=== PATIENT | female | born 1995 | race Caucasian/White ===

== ENCOUNTER 2020-11-18 12:33 | Emergency (ER) | payer OTHER, SELFPAY ==
[2020-11-18 12:44] VITALS: BP 124/77; PULSE 73; RESP 16; TEMP 36.3; O2SAT 100
--- NOTE | 2020-11-18 12:44 | ED.URI ---
HPI - URI/Sore Throat General Chief Complaint: Upper Respiratory Infection Stated Complaint: Fatigue,Congestion Time Seen by Provider: 11/18/20 12:44 Source: patient and RN notes reviewed Mode of arrival: ambulatory Limitations: no limitations History of Present Illness HPI Narrative: 24-year-old female presents to the [facility] with complaints of fatigue since Friday, 5 days. States that she has had 2 - Covid tests and took a test, all negative. Thought this was all allergy related. States that she had resent Lab work with elevated T4 @104 Reports a fever of 100.4 yesterday. No fever today just states that this fatigue feels like when she had Covid last May. She is fully vaccinated. Patient is requesting that we do lab work to figure out why she is so tired all the time. Discussed with patient that we can offer a test however we do not do blood work. States that she became concerned when her heart rate was over 80. Related Data Home Medications Medication Instructions Recorded Confirmed Seroquel 12.5 mg PO HS 11/18/20 11/18/20 lamotrigine 200 mg PO HS 11/18/20 11/18/20 Allergies Allergy/AdvReac Type Severity Reaction Status Date / Time No Known Allergies Allergy Verified 11/18/20 12:55 Review of Systems Review of Systems: All systems reviewed & are unremarkable except as noted in HPI and below Constitutional: Constitutional: Reports no additional constitutional complaints, Denies chills, Reports fatigue and Reports fever(s) Eyes: Eyes: Reports no additional eye complaints ENT: Reports nasal congestion Cardiovascular: Cardiovascular: Reports as per HPI and Denies chest pain Respiratory: Respiratory: Reports as per HPI, Reports no additional respiratory complaints, Denies cough and Denies dyspnea Gastrointestinal: Gastrointestinal: Reports no additional gastrointestinal complaints Genitourinary: Genitourinary: Reports no additional female genitourinary complaints Musculoskeletal: Musculoskeletal: Reports no additional musculoskeletal complaints Neurologic: Reports system reviewed and no additional complaints, except as documented and Denies headache(s) Psychiatric: Psychiatric: Reports no additional psychiatric complaints PMFSH Comments At the time of my signature, I reviewed and agree with the nursing past medical, surgical, social, and family history. There is no relevant family history pertinent to the patient complaint. Exam Const: General: healthy appearing, no acute distress and alert Nutritional Appearance: well nourished Orientation/consciousness: patient oriented x3 Limitations: no limitations HENMT: Head: normal to inspection Ears: external ears normal and TM's normal bilaterally Mouth: Yes moist mucous membranes Throat: uvula midline Eyes: Pupils: Equal, round and reactive pupils present Resp: Effort & Inspection: normal respiratory effort and no use of accessory muscles Auscultation: clear to auscultation bilaterally, no crackles, no rales, no rhonchi and no wheezes Cardio: Rate: regular rate Rhythm: regular rhythm GI: GI Palp: Yes Soft to palpation and No Tenderness to palpation present (GI) : General: Yes no CVA tenderness Back/Spine/Pelvis: Back: no CVA tenderness Skin: General skin exam: normal color Rashes: no rashes Neuro: General: patient oriented x3, moves all extremities and no meningeal signs Speech: normal speech Gait exam (Neuro): Normal gait present Extrem: General: normal to inspection Psych: Appearance: grossly normal and well kempt Mental Status: mental status grossly normal Affect: normal affect Attitude: cooperative Thought content: Yes Normal thought content present Course Vital Signs Vital signs: Vital Signs Temperature 97.4 F L 11/18/20 12:44 Pulse Rate 73 11/18/20 12:44 Respiratory Rate 16 11/18/20 12:44 Blood Pressure 124/77 11/18/20 12:44 Pulse Oximetry 100 11/18/20 12:44 Temperature 97.4 F L
== END 2020-11-18 13:07 | disposition home or self-care (01) ==
PROVIDERS: Emergency Provider Nurse Practitioner; PCP Family Medicine
DX: R53.83 Other fatigue (principal); N80.9 Endometriosis, unspecified; E28.2 Polycystic ovarian syndrome; F31.9 Bipolar disorder, unspecified
CPT/HCPCS: 99202; G0463

== ENCOUNTER 2021-04-19 13:37 | Emergency (ER) | payer OTHER, SELFPAY ==
--- NOTE | ~2021-04-19 | XR_ITS ---
XR chest 2V DATE: 04/19/2021 14:26 INDICATION: Intermittent palpitations for 2 weeks TECHNIQUE: PA and lateral views COMPARISON: None FINDINGS: Normal heart size. No hilar or mediastinal enlargement. No pulmonary infiltrate or consolid ation, pleural effusion or pulmonary vascular congestion or pneumothorax. Included skeletal structure s are unremarkable other than mild levoscoliosis of the thoracic spine. IMPRESSION: No active cardiopulmonary disease Reviewed, dictated and finalized at location B.
--- NOTE | 2021-04-19 13:43 | ECG_ITS ---
Measurements Intervals [place] Rate: 88 P: 68 [place]: 159 QRS: 79 QRSD: 96 T: 45 QT: 360 QTc: 436 Interpretive Statements SINUS RHYTHM POSSIBLE LEFT ATRIAL ENLARGEMENT INCOMPLETE RIGHT BUNDLE BRANCH BLOCK BORDERLINE T WAVE ABNORMALITY- ANT/INF LEADS BORDERLINE ECG Electronically Signed On 04-19-2021 14:00:06 CDT by Tung Workman D.O.
[2021-04-19 13:49] VITALS: BP 105/78; PULSE 85; RESP 14; TEMP 37.1; O2SAT 100
[2021-04-19 14:20] LABS: Basophils Absolute Auto 0.1 K/mm3 (0.0-0.1); Basophils Percent Auto 0.7 % (0.2-1.2); Eosinophils Absolute Auto 0.3 K/mm3 (0-0.3); Eosinophils Percent Auto 3.9 % (0-4.4); Hematocrit 39.2 % (37.0-47.0); Hemoglobin 13.5 g/dL (12.0-15.0); Immature Granulocyte Absolute 0.03 K/mm3 (0.00-0.031); Immature Granulocyte Percent A 0.4 % (0-0.5); Lymphocytes Absolute Auto 2.22 K/mm3 (0.9-3.2); Mean Corpuscular HGB Conc 34.4 g/dl (32-36); Mean Corpuscular Volume 98.7 fl (80-100); Mean Platelet Volume 10.8 fl (7.4-10.4); Monocytes Absolute Auto 0.6 K/mm3 (0.1-0.6); Monocytes Percent Auto 7.4 % (2.6-8.5); Neutrophils Absolute Auto 4.3 K/mm3 (1.3-6.7); Neutrophils Percent Auto 57.6 % (45.5-73.1); Platelet Count Result 201 k/mm3 (150-375); Red Blood Count 3.97 M/mm3 (4.2-5.4); Red Cell Distribution Width 11.8 % (11.5-14.5); White Blood Count 7.4 K/mm3 (4.5-10.0)
[2021-04-19 14:33] LABS: INR 0.9; Prothrombin Time 11.9 Seconds (11.1-14.7)
[2021-04-19 14:34] LABS: Partial Thromboplastin Time 28.3 SECONDS (22.3-36.8)
[2021-04-19 14:35] LABS: Anion Gap 9 mmol/L (8-16); Blood Urea Nitrogen 15 mg/dL (7-17); Calcium 9.5 mg/dL (8.4-10.2); Carbon Dioxide 28 mmol/L (22-30); Chloride 102 mmol/L (98-107); Estimated CRCL calculation 66 ml/min; Estimated Glomerular Filt Rate > 60; Glucose 96 mg/dL (65-110); Potassium 4.1 mmol/L (3.4-5.0); Sodium 139 mmol/L (137-145)
[2021-04-19 14:46] LABS: Troponin I < 0.012 ng/mL (0.000-0.034)
[2021-04-19] MEDS: SODIUM CHLORIDE 0.9% IV 1,000 ML 999 ML IV CONT (17:21)
[2021-04-19 17:34] LABS: Troponin I < 0.012 ng/mL (0.000-0.034)
[2021-04-19 18:27] VITALS: BP 126/82; PULSE 71; RESP 18; O2SAT 100
--- NOTE | 2021-04-19 18:41 | ED.GENADULT ---
HPI - General Adult General Chief complaint: Arrhythmia/Palpitations Stated complaint: palpations Time Seen by Provider: 04/19/21 16:39 History of Present Illness HPI narrative: Patient is a 25-year-old female who presents ER with concerns of elevated heart rate/palpitations. Reports she noticed that her resting heart rate was higher than normal and that she is becoming slightly tachycardic. She did also notice that she is getting dizzy when going from sitting to standing. Reports normal oral intake of food and water. No change in home medications. Denies fevers or chills or sweats. No unexplained weight loss. Contacted her PCP who cannot see her today and reported she had increased concern she should go to the ER for further evaluation. Related Data Home Medications Medication Instructions Recorded Confirmed lamotrigine 200 mg PO HS 11/18/20 12/18/20 loratadine 10 mg tablet 10 mg PO DAILY 12/18/20 12/18/20 methylphenidate HCl 18 mg 18 mg PO QAM 12/18/20 12/18/20 tablet,extended release 24 hr quetiapine 25 mg tablet 25 mg PO QHS 12/18/20 12/18/20 Allergies Allergy/AdvReac Type Severity Reaction Status Date / Time No Known Allergies Allergy Verified 12/18/20 08:42 Review of Systems Review of Systems: All systems reviewed & are unremarkable except as noted in HPI and below Constitutional: Constitutional: Denies chills, Denies fever(s) and Denies weakness ENT: Denies nasal congestion and Denies sore throat Cardiovascular: Cardiovascular: Denies chest pain, Reports rapid heart rate and Denies radiating jaw, neck or arm pain Respiratory: Respiratory: Denies cough and Denies dyspnea Gastrointestinal: Gastrointestinal: Denies abdominal pain, Denies nausea and Denies vomiting [facility] Past Medical History Medical History (Updated 04/19/21 @ 18:50 by Jarett Husain MD) ADHD Allergies Anxiety Asthma Endometriosis PCOS (polycystic ovarian syndrome) Surgical History Surgical History (Updated 04/19/21 @ 18:50 by Jarett Husain MD) H/O laparoscopy Family History Family History Mother Depression Anxiety Grandparent Breast cancer paternal Anxiety maternal Depression maternal Social History Social History Smoking status: Never smoker Alcohol intake: current Drinks per week: 5 Alcohol use details: milady Substance use: never Substance use type: does not use Additional occupation/education comments: [employer] Operator Exam Narrative: GENERAL: Well-appearing, well-nourished, and in no acute distress. HEAD: Normocephalic, atraumatic. EYES: PERRL and EOMI. ENT: Mucous membranes moist. CHEST: Clear to auscultation. No respiratory distress. HEART: Regular rate and rhythm. Normal peripheral pulses. ABDOMEN: Soft, nontender, nondistended. EXTREMITIES: Normal range of motion. No edema. SKIN: Warm, dry, no rash. NEURO: Normal mood and affect. Course Course Emergency Course: Hydrated, feels improved, discharge home. Vital Signs Vital signs: Vital Signs Temperature 98.7 F 04/19/21 13:49 Pulse Rate 85 04/19/21 13:49 Respiratory Rate 14 04/19/21 13:49 Blood Pressure 105/78 04/19/21 13:49 Pulse Oximetry 100 04/19/21 13:49 Temperature 98.7 F 04/19/21 13:49 Pulse Rate 71 04/19/21 18:27 Respiratory Rate 18 04/19/21 18:27 Blood Pressure 126/82 04/19/21 18:27 Pulse Oximetry 100 04/19/21 18:27 Medical Decision Making Vital Signs Vital Signs: Vital Signs Temperature 98.7 F 04/19/21 13:49 Pulse Rate 85 04/19/21 13:49 Respiratory Rate 14 04/19/21 13:49 Blood Pressure 105/78 04/19/21 13:49 Pulse Oximetry 100 04/19/21 13:49 Temperature 98.7 F 04/19/21 13:49 Pulse Rate 71 04/19/21 18:27 Respiratory Rate 18 04/19/21 18:27 Blood Pressure 126/82 04/19/21 18:27 Pulse Ox
[2021-04-19 18:57] VITALS: BP 104/76; PULSE 74
[2021-04-19 18:58] VITALS: BP 115/81; PULSE 78
[2021-04-19] MEDS: IBUPROFEN 600 MG TABLET PO (18:59)
[2021-04-19 19:00] VITALS: BP 111/77; PULSE 83
== END 2021-04-19 19:21 | disposition home or self-care (01) ==
PROVIDERS: Emergency Provider Emergency Medicine; PCP Family Medicine
DX: R00.2 Palpitations (principal); J45.909 Unspecified asthma, uncomplicated; N80.9 Endometriosis, unspecified; E28.2 Polycystic ovarian syndrome; F90.9 Attention-deficit hyperactivity disorder, unspecified type; F41.9 Anxiety disorder, unspecified; I45.10 Unspecified right bundle-branch block; R94.31 Abnormal electrocardiogram [ECG] [EKG]
CPT/HCPCS: 36415; 71046; 80048; 84484; 85025; 85610; 85730; 93005; 96360; 96361; 99284; A9270; J7030

== ENCOUNTER 2021-04-23 13:28 | Emergency (ER) | payer OTHER, SELFPAY ==
[2021-04-23] VITALS (21 sets, daily range): BP systolic 91–141; BP diastolic 55–85; PULSE 65–101; RESP 14–34; TEMP 36.7–36.8; O2SAT 99–100
--- NOTE | 2021-04-23 13:56 | ECG_ITS ---
Measurements Intervals [place] Rate: 90 P: 71 [place]: 155 QRS: 86 QRSD: 101 T: 48 QT: 358 QTc: 439 Interpretive Statements SINUS RHYTHM POSSIBLE LEFT ATRIAL ENLARGEMENT INCOMPLETE RIGHT BUNDLE BRANCH BLOCK BORDERLINE ST-T WAVE ABNORMALITY- ANT/INF LEADS BORDERLINE ECG Electronically Signed On 04-23-2021 14:35:10 CDT by Tung Workman D.O.
[2021-04-23 14:29] LABS: Basophils Percent Auto 0.5 % (0.2-1.2); Eosinophils Absolute Auto 0.3 K/mm3 (0-0.3); Eosinophils Percent Auto 5.5 % (0-4.4); Hematocrit 41.5 % (37.0-47.0); Hemoglobin 13.8 g/dL (12.0-15.0); Immature Granulocyte Absolute 0.01 K/mm3 (0.00-0.031); Immature Granulocyte Percent A 0.2 % (0-0.5); Lymphocytes Absolute Auto 2.14 K/mm3 (0.9-3.2); Lymphocytes Percent Auto 35.4 % (18.3-44.2); Mean Corpuscular HGB Conc 33.3 g/dl (32-36); Mean Corpuscular Hemoglobin 33.4 pg (26-34); Mean Corpuscular Volume 100.5 fl (80-100); Mean Platelet Volume 10.7 fl (7.4-10.4); Monocytes Absolute Auto 0.4 K/mm3 (0.1-0.6); Monocytes Percent Auto 6.5 % (2.6-8.5); Neutrophils Absolute Auto 3.1 K/mm3 (1.3-6.7); Neutrophils Percent Auto 51.9 % (45.5-73.1); Platelet Count Result 214 k/mm3 (150-375); Red Blood Count 4.13 M/mm3 (4.2-5.4); Red Cell Distribution Width 11.8 % (11.5-14.5)
[2021-04-23 14:41] LABS: Anion Gap 9 mmol/L (8-16); Blood Urea Nitrogen 17 mg/dL (7-17); Calcium 9.4 mg/dL (8.4-10.2); Carbon Dioxide 30 mmol/L (22-30); Chloride 101 mmol/L (98-107); Estimated CRCL calculation 73 ml/min; Estimated Glomerular Filt Rate > 60; Glucose 65 mg/dL (65-110); Potassium 3.4 mmol/L (3.4-5.0); Sodium 140 mmol/L (137-145)
[2021-04-23] MEDS: SODIUM CHLORIDE 0.9% IV 1,000 ML 999 ML IV CONT (16:12)
--- NOTE | 2021-04-23 16:33 | PC.NURSE ---
Cardiology here to put holter monitor on pt
--- NOTE | 2021-04-23 21:38 | ED.GENADULT ---
HPI - General Adult General Chief complaint: Syncope Stated complaint: near syncopal episode Time Seen by Provider: 04/23/21 14:26 Source: patient Mode of arrival: ambulatory Limitations: no limitations History of Present Illness HPI narrative: Patient presents with chief complaint of feeling as if she was going to have a syncopal episode while assisting a patient with physical therapy. She states that she went and sat down and laying back and she began to feel better. Patient reports that during the episode she felt as if her heart was beating extremely fast. She reports states that her vital signs and her heart rate was 140s. Patient reports that her blood pressure was normal at 120s over 70s. Patient states that she did not lose consciousness. She denies chest pain or shortness of breath. She denies any head impact or loss of consciousness. Patient reports that she had a appointment with her primary care provider this evening but due to this event she came straight to the emergency department. Patient reports that since last she has had these palpitations events approximately 2-3 times a day. She denies syncope, chest pain, shortness of breath accompanying them. Related Data Home Medications Medication Instructions Recorded Confirmed lamotrigine 200 mg PO HS 11/18/20 12/18/20 loratadine 10 mg tablet 10 mg PO DAILY 12/18/20 12/18/20 methylphenidate HCl 18 mg 18 mg PO QAM 12/18/20 12/18/20 tablet,extended release 24 hr quetiapine 25 mg tablet 25 mg PO QHS 12/18/20 12/18/20 Allergies Allergy/AdvReac Type Severity Reaction Status Date / Time No Known Allergies Allergy Verified 04/23/21 14:48 Review of Systems Review of Systems: CONSTITUTIONAL: Denies fever, chills, or sweats. EYES: Denies visual changes, redness, or discharge. ENT: Denies rhinorrhea, congestion, sore throat, or otalgia. CARDIOVASCULAR: Reports palpitations denies chest pain, or edema. RESPIRATORY: Denies cough or dyspnea. GASTROINTESTINAL: Denies abdominal pain, nausea, vomiting, or diarrhea. GENITOURINARY: Denies dysuria or hematuria. SKIN: Denies rash or itching. MUSCULOSKELETAL: Denies back pain, joint pain, or myalgia. NEUROLOGIC: Reports near syncope denies headache, numbness, dizziness, or weakness. PSYCHIATRIC: Denies anxiety or depression. [facility] Past Medical History Medical History (Updated 04/23/21 @ 16:39 by Chalino Malcolm PA-C) ADHD Allergies Anxiety Asthma Endometriosis PCOS (polycystic ovarian syndrome) Surgical History Surgical History (Updated 04/19/21 @ 18:50 by Jarett Husain MD) H/O laparoscopy Family History Family History Mother Depression Anxiety Grandparent Breast cancer paternal Anxiety maternal Depression maternal Social History Social History Smoking status: Never smoker Alcohol intake: current Drinks per week: 5 Alcohol use details: milady Substance use: never Substance use type: does not use 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 HEAD: Normocephalic, atraumatic. EYES: PERRLA and EOMI. ENT: Nares clear, no rhinorrhea or epistaxis. Mucous membranes moist. Oropharynx without tonsillar hypertrophy exudate or other lesions. Bilateral TMs pearly durán nonbulging NECK: Supple. No adenopathy or masses. Range of motion intact without rigidity. CHEST: Clear to auscultation. No respiratory distress. No wheezes rales or rhonchi HEART: Regular rate and rhythm. No murmur heard. Normal peripheral pulses. EXTREMITIES: Normal range of motion. No edema. SKIN: Warm, dry, no rash. NEURO: No focal deficits. Alert and oriented x3. No cerebellar dysfunction. Speech clear and appropriate. Segmental Wall Installer strength equal bilaterally. No unilateral
--- NOTE | 2021-04-26 12:29 | WPDHOLTEREM ---
Holter/Event Monitor Holter/Event Monitor Date of procedure: 04/23/21 Holter/Event Procedure: 48 Hr Holter Monitor Indications: Palpitations Conclusion: 1. 48 hour holter monitor on 04/23/21. 2. Underlying rhythm is sinus rhythm. HR range 42-141 bpm; average HR 77 bpm. 3. No premature supraventricular complex. No supraventricular tachycardia. 4. No premature ventricular complex. No ventricular tachycardia. 5. No sinoatrial or atrioventricular blocks. No significant pauses greater than 2 seconds. 6. Patient reports symptoms of palpitations, pounding hard, fluttering 59-108 bpm.
== END 2021-04-23 17:24 | disposition home or self-care (01) ==
PROVIDERS: Emergency Medicine; Emergency Provider Emergency Medicine; PCP Family Medicine
DX: R00.2 Palpitations (principal); F90.9 Attention-deficit hyperactivity disorder, unspecified type; F41.9 Anxiety disorder, unspecified; J45.909 Unspecified asthma, uncomplicated; N80.9 Endometriosis, unspecified; E28.2 Polycystic ovarian syndrome; I45.10 Unspecified right bundle-branch block; R94.31 Abnormal electrocardiogram [ECG] [EKG]
CPT/HCPCS: 36415; 80048; 85025; 93005; 93225; 93226; 96360; 99284; J7030

== ENCOUNTER 2021-04-30 10:25 | Outpatient (CLI) | payer OTHER, SELFPAY ==
[2021-04-30 10:49] LABS: Basophils Absolute Auto 0.1 K/mm3 (0.0-0.1); Basophils Percent Auto 0.7 % (0.2-1.2); Eosinophils Absolute Auto 0.4 K/mm3 (0-0.3); Eosinophils Percent Auto 5.3 % (0-4.4); Hematocrit 39.5 % (37.0-47.0); Hemoglobin 13.4 g/dL (12.0-15.0); Immature Granulocyte Absolute 0.02 K/mm3 (0.00-0.031); Immature Granulocyte Percent A 0.3 % (0-0.5); Lymphocytes Absolute Auto 2.15 K/mm3 (0.9-3.2); Lymphocytes Percent Auto 30.8 % (18.3-44.2); Mean Corpuscular HGB Conc 33.9 g/dl (32-36); Mean Corpuscular Hemoglobin 34.3 pg (26-34); Mean Platelet Volume 10.9 fl (7.4-10.4); Monocytes Absolute Auto 0.4 K/mm3 (0.1-0.6); Monocytes Percent Auto 5.6 % (2.6-8.5); Neutrophils Percent Auto 57.3 % (45.5-73.1); Platelet Count Result 203 k/mm3 (150-375); Red Blood Count 3.91 M/mm3 (4.2-5.4); Red Cell Distribution Width 11.8 % (11.5-14.5)
[2021-04-30 11:21] LABS: Alanine Aminotransferase 15 U/L (4-35); Albumin Level 4.6 g/dL (3.5-5.1); Alkaline Phosphatase 47 U/L (38-126); Anion Gap 10 mmol/L (8-16); Aspartate Amino Transferase 27 U/L (14-36); Bilirubin,Total 0.9 mg/dL (0.2-1.3); Blood Urea Nitrogen 15 mg/dL (7-17); Calcium 9.4 mg/dL (8.4-10.2); Carbon Dioxide 26 mmol/L (22-30); Chloride 101 mmol/L (98-107); Cholesterol 148 mg/dL (0-200); Estimated Glomerular Filt Rate > 60; Glucose 98 mg/dL (65-110); HDL Direct 63 mg/dL; Potassium 4.4 mmol/L (3.4-5.0); Sodium 137 mmol/L (137-145); Triglycerides 60 mg/dL (<150)
[2021-04-30 11:24] LABS: LDL Cholesterol Direct 65 mg/dL
[2021-04-30 11:30] LABS: Vitamin D 25 Hydroxy 54.1 ng/mL
[2021-04-30 11:40] LABS: SPREG INTERNAL CONTROL Positive; Serum Qual hCG Negative
== END 2021-04-30 10:26 | disposition home or self-care (01) ==
LOC: ANHLAB 10:27
PROVIDERS: PCP Family Medicine; Visit Provider Family Medicine
DX: R00.2 Palpitations (principal); E55.9 Vitamin D deficiency, unspecified; Z32.01 Encounter for pregnancy test, result positive; Z13.220 Encounter for screening for lipoid disorders
CPT/HCPCS: 36415; 80053; 80061; 82306; 84443; 84703; 85025

== ENCOUNTER 2021-09-19 09:24 | Outpatient (CLI) | payer OTHER, SELFPAY ==
[2021-09-19 09:56] LABS: Basophils Absolute Auto 0.1 K/mm3 (0.0-0.1); Basophils Percent Auto 0.6 % (0.2-1.2); Eosinophils Absolute Auto 0.4 K/mm3 (0-0.3); Eosinophils Percent Auto 4.9 % (0-4.4); Hematocrit 41.3 % (37.0-47.0); Hemoglobin 13.9 g/dL (12.0-15.0); Immature Granulocyte Absolute 0.02 K/mm3 (0.00-0.031); Immature Granulocyte Percent A 0.2 % (0-0.5); Lymphocytes Absolute Auto 2.03 K/mm3 (0.9-3.2); Lymphocytes Percent Auto 22.8 % (18.3-44.2); Mean Corpuscular HGB Conc 33.7 g/dl (32-36); Mean Corpuscular Hemoglobin 32.7 pg (26-34); Mean Corpuscular Volume 97.2 fl (80-100); Mean Platelet Volume 10.4 fl (7.4-10.4); Monocytes Absolute Auto 0.5 K/mm3 (0.1-0.6); Monocytes Percent Auto 5.5 % (2.6-8.5); Neutrophils Absolute Auto 5.9 K/mm3 (1.3-6.7); Platelet Count Result 218 k/mm3 (150-375); Red Blood Count 4.25 M/mm3 (4.2-5.4); White Blood Count 8.9 K/mm3 (4.5-10.0)
[2021-09-19 10:06] LABS: Hemoglobin A1C 4.7 % (<5.7)
[2021-09-19 10:20] LABS: Alanine Aminotransferase 14 U/L (4-35); Albumin Level 4.9 g/dL (3.5-5.1); Alkaline Phosphatase 69 U/L (38-126); Amylase 72 U/L (30-110); Anion Gap 10 mmol/L (8-16); Aspartate Amino Transferase 26 U/L (14-36); Bilirubin,Total 0.4 mg/dL (0.2-1.3); Blood Urea Nitrogen 18 mg/dL (7-17); Calcium 9.2 mg/dL (8.4-10.2); Carbon Dioxide 26 mmol/L (22-30); Chloride 102 mmol/L (98-107); Estimated Glomerular Filt Rate > 60; Glucose 88 mg/dL (65-110); Lipase 53 U/L (23-300); Potassium 4.2 mmol/L (3.4-5.0); Sodium 138 mmol/L (137-145)
[2021-09-19 10:27] LABS: T4 Thyroxine 8.84 ug/dL (5.53-11.0)
[2021-09-19 10:29] LABS: Iron 115 ug/dL (37-170)
[2021-09-19 10:47] LABS: Percent Iron Saturation 37 % (20-50)
[2021-09-22 04:34] LABS: Thyroid Peroxidase Antibodies <1 IU/mL (<9)
[2021-09-25 13:48] LABS: Thyroid Stimulating Immunoglob <89 % baseline (<140)
== END 2021-09-19 09:25 | disposition home or self-care (01) ==
PROVIDERS: PCP Family Medicine
DX: D64.9 Anemia, unspecified (principal); E06.3 Autoimmune thyroiditis; E87.8 Other disorders of electrolyte and fluid balance, not elsewhere classified; E03.9 Hypothyroidism, unspecified; K85.90 Acute pancreatitis without necrosis or infection, unspecified; E16.2 Hypoglycemia, unspecified
CPT/HCPCS: 36415; 80053; 82150; 83036; 83540; 83550; 83690; 84436; 84443; 84445; 85025; 86376